=== PATIENT | female | born 1950 | race Caucasian/White ===

== ENCOUNTER 2017-10-16 05:57 | Day surgery (SDC) | payer MEDICARE, OTHER, SELFPAY ==
[2017-10-16] VITALS (7 sets, daily range): BP systolic 125–150; BP diastolic 62–76; PULSE 60–69; RESP 14–16; TEMP 36–36.4; O2SAT 100; BMI 26.1
--- NOTE | 2017-10-16 | BUN_PTH ---
PATIENT: RAKEL RUEDA LOC: [facility] [place] U#:[id number] AGE/SX: 67/F ROOM: RE10/16/[address]: Dr. Luca Mansfield DPM : 1950 BED: DIS: 10/16/2017 SPEC #: [id number] RECD: 10/16/17 09:09 STATUS: REYNALDO EVELYN #: [id number] SARA: 10/16/17 00:[address]: Luca Mansfield DEPT: SURGICAL PATHOLOGY RECD BY: Brea Nunez ENTERED: 10/16/17 09:55 SP TYPE: BUNION OTHR DR: Jayro Ortiz Tissues: A - Bony tissue, NOS B - Bony tissue, NOS Procedures: Decalcification bone/plaque Surgery Specimen Level IV HEADER OPERATION: First metatarsal osteotomy bunionectomy / great toe Chris osteotomy PRE-OP DIAGNOSIS: Bunion of left first metatarsal TISSUE SUBMITTED: A ? Gout first metatarsophalangeal joint sent fresh, B ? Left foot bunionectomy MICROSCOPIC DIAGNOSIS A. Gout, first metatarsophalangeal joint tissue: A piece of fibroconnective tissue with changes consistent with gout. Touch imprint shows monosodium urate crystals. B. Left foot bunion: Pieces of fibroconnective tissue, reactive synovial tissue with chronic inflammation and changes consistent with gout. Pieces of bone with reactive changes, clinically bunion. SJ:rg 10/21/17 COMMENT A. The specimen is evaluated at the time of touch imprints by Dr. Pelletier. Immediate Evaluation = Gout, monosodium urate crystals are noted. MICROSCOPIC DESCRIPTION Slides are reviewed. GROSS DESCRIPTION A - Received fresh for examination of crystals labeled with the patient's name is a specimen designated left foot first metatarsal gout crystal. The specimen consists of two minute pieces of randhawa soft tissue measuring in aggregate 0.2 x 0.2 x 0.1 cm. Two touch imprints are prepared for crystal examination. The entire specimen is submitted in one cassette. B - Received in fixative is one container labeled with the patient's name and designated left foot bunion. The specimen consists of multiple pieces of bone that in aggregate measure 4 x 3.5 x 0.5 cm. Also present in the container are multiple pieces of soft tissue measuring in aggregate 2.5 x 2 x 0.3 cm. The entire specimen is submitted in three cassettes as follows: 1 ? soft tissue, 2 & 3 ? bone after decalcification. / SJ:rg 10/16/17 TC:5 CPT: 32484 x2, 47379, 32021
--- NOTE | 2017-10-16 06:10 | EKG12_ITS ---
Test Reason : PRE OP Blood Pressure : / mmHG Vent. Rate : 066 BPM Atrial Rate : 066 BPM P-R Int : 152 ms QRS Dur : 078 ms QT Int : 402 ms P-R-T Axes : 027 -02 021 degrees QTc Int : 421 ms Normal sinus rhythm Normal ECG Confirmed by MARC TATUM, TAMIKA ([id number]), supervising editor news reel YARI DEL RIO ([id number]) on 10/19/2017 4:07:20 PM Referred By: Luca Mansfield Confirmed By:TAMIKA TRAN MD
[2017-10-16 06:28] LABS: Absolute Lymphocyte Count 2.15 X10^3/ul (0.83-4.51); Absolute Neutrophil Count 4.6 X10^3/uL (2.0-7.7); Basophil# 0.04 X10^3/uL; Basophil% 0.5 % (0-1); Eosinophil# 0.23 X10^3/uL; Eosinophils% 2.8 % (0-5); Hematocrit 41.7 % (37-47); Hemoglobin 14.2 g/dl (12.0-15.0); Lymphocyte # 2.15 X10^3/ul (4.0); Lymphocyte % 26.4 % (19-41); Mean Corp Hgb Conc 34.1 g/gl (32-36); Mean Corpuscular Hgb 30.9 pg (27.0-32.0); Mean Corpuscular Volume 90.8 fL (81-99); Mean Platelet Vol. 9.2 fl (6.2-12.0); Monocyte# 1.13 X10^3/uL; Monocyte% 13.9 % (0-10); Neutrophil # 4.58 X10^3/uL (2.7-7.7); Neutrophil % 56.3 % (47-70); Platelet Count 270 K/mm3 (150-450); RBC Distribution Width CV 12.9 % (11.6-14.6); RBC Distribution Width SD 42.4 fl (35.1-43.9); Red Blood Count 4.59 M/mm3 (4.2-5.4); White Blood Count 8.1 K/mm3 (4.4-11.0)
[2017-10-16 06:32] LABS: POSITIVE COUNT NO; POSITIVE DIFFERENTIAL NO; POSITIVE MORPHOLOGY NO
[2017-10-16 06:42] LABS: Anion Gap 8 (5-15); BUN 24 mg/dL (7-18); BUN/Creat Ratio 24.3 RATIO (10-20); Calcium,Total 8.9 mg/dL (8.5-10.1); Chloride 107 mmol/L (98-107); Creatinine, Serum 0.99 mg/dL (0.55-1.02); EST Glomerular Filtration Rate 59 mL/min (>60); Est Glom Filt Rate - Afr Amer 72 mL/min (>60); Glucose 102 mg/dL (74-106); Potassium 4.2 mmol/L (3.5-5.1); Sodium Level 144 mmol/L (136-145)
[2017-10-16] MEDS: Cefazolin 2 GM in 0.9% Normal Saline 100 ML IV (07:26)
--- NOTE | 2017-10-16 07:30 | RAD_ITS ---
STUDY: X-RAY LEFT FOOT, GREAT TOE REASON FOR EXAM: Female, 67 years old. Bunionectomy TECHNIQUE: 2 intraoperative fluoroscopic view(s) of the toe were obtained. COMPARISON: None. FINDINGS: 1 images severely degraded by motion artifact. Postoperative changes are seen to the first metatarsal and proximal first phalanx. RAD/Toe(s) Min 2 Views IMPRESSION: Fluoroscopy provided for the operating surgeon. Electronically Signed: Fabrizio Morris DO at 9:58 EDT Tel , Service support ,
[2017-10-16] MEDS: Bupivacaine 0.25% 30 ML Vial (07:42)
--- NOTE | 2017-10-16 09:12 | OP.PCM_ITS ---
Report of Operation Date of Procedure: 10/16/17 Pre-Operative Diagnosis: Hallux valgus bunion, left foot Post-Operative Diagnosis: Hallux valgus bunion, left foot Surgery/Procedure Performed:: 1st metatarsal osteotomy bunionectomy, kamryn ( great toe) osteotomy left foot Description of Surgical Findings:: Significant hallux valgus bunion left foot, degenerative changes of the 1st MTPJ , gouty tophi 1st MTPJ left foot waste treatment operator: yes - Dr. Lonnie Watson Type of Anesthesia:: Local MAC Specimen's removed: Resected bunion left 1st MTPJ left foot sent to pathology. Crystal analysis left 1st MTPJ sent to pathology Estimated Blood Loss (mL): 10mL Description of Procedure: Indications: This is a 67 year-old female who has had chronic left foot bunion pain. She has a significant bunion deformity present. She has trouble with shoes and with activities. She has tried nonsurgical care however her symptoms persist and are only getting worse. She was asking about surgical options. We discussed all of the options, and she elected to proceed with first metatarsal osteotomy bunionectomy with a great toe osteotomy. This was discussed with her in great detail. We reviewed all the possible benefits, risks, goals and expectations. She expressed understanding and agreement. We also reviewed the typical postoperative and expected postoperative course. She expressed understanding and agreement and wanted to proceed forward with surgical intervention. All alternative options were discussed with her and all the possible benefits, risks of the alternative options were discussed with her as well in detail. She expressed understanding and agreement and again want to proceed for surgical intervention. The consent form was reviewed with her and she freely signed them. No guarantees were given or implied. Operative Procedure: The patient was brought back into the operating room and was placed onto the operative table in the supine position. She was carefully secured to the operating room table with safety belt around her waist. The patient did receive 2 g of intravenous cefazolin for antibiotic prophylaxis, the patient received MAC anesthesia per the anesthesiologist and then a total of 10 mL of 0.5% bupivacaine plain was given as a regional infiltrative nerve block around the first ray on her left foot after overlying skin was cleansed with 70% isopropyl alcohol. A well-padded pneumatic tourniquet was applied around her left ankle. The left foot was scrubbed, prepped and draped in the usual aseptic fashion. Further attention was directed to the left foot, there was significant hallux valgus bunion deformity. The hallux was abutting into the second toe. The foot was exsanguinated using an Esmarch bandage and the left ankle pneumatic tourniquet was inflated to 250 mmHg. Using a #15 scalpel blade, an incision was made just medial to the extensor hallucis longus tendon overlying the dorsal aspect of the first metatarsal and over the first metatarsophalangeal joint. Careful dissection was completed down to the first metatarsal and first metatarsophalangeal joint. The capsule of the first metatarsophalangeal joint was incised dorsally as well as the periosteum of the first metatarsal was incised dorsally using a #15 scalpel blade and these were carefully partially reflected exposing the distal first metatarsal and the first metatarsal. The first metatarsal head was visualized, there was noted to be chronic degenerative changes with thinning of the cartilage present. There was also noted to be gouty tophi present which was removed and sent to pathology for crystal analysis. There was a large medial eminence of the first metatarsal head and using a powered sagittal saw, this was gently resected preserving the sagittal groove, this was sent to pathology. A scarf osteotomy was completed using a powered sagittal saw to the first metatarsal. This was done in standard fashion with a longitudinal arm, a dorsal distal arm and a plantar proximal arm. The capital fragment was gently and carefully shifted laterally reducing the first intermetatarsal angle to normal. The osteotomy site was temporarily fixated with a 0.062 inch K wire, then osteotomy site was fixated using rigid open reduction and internal fixation technique using two 2.7 mm Synthes screws from the Synthes mini fragment set. The 0.045 K-wire was removed. The osteotomy was stable with good bone to bone contact and good alignment present, screws intact in good position. Intraoperative fluoroscopy confirmed this as well. It was also noted that the adductor hallucis longus tendon was very tight as well as the lateral capsule and the sesamoidal ligament of the fibular sesamoid. Careful dissection was completed to the distal 1st intermetatarsal space, and the adductor hallucis longus tendon, lateral capsule of the first metatarsal phalangeal joint, and the sesamoidal ligament of the fibular sesamoid were identified, these were gently released using a #15 scalpel blade. At this time, it was noted that there was still lateral deviation of the hallux consistent with her significant deformity. An incision was made using a 15 scalpel blade overlying the dorsal medial aspect of the hallux proximal phalanx , medial to the extension hallucis longus tendon. Careful dissection was completed down to the periosteum of the proximal phalanx of the hallux. The periosteum was incised on the hallux proximal phalanx and was partially reflected exposing the bone for an Kamryn osteotomy. Kamryn osteotomy was completed using a powered sagittal saw with the apex of the osteotomy lateral and the base medial. The wedge of bone was gently removed, keeping the lateral cortex intact. The hallux was shifted medially so that it was in a rectus position clinically. The bone ends were brought together and was fixated using rigid open reduction and internal fixation technique using one Arthrex plaple. At this time, the osteotomy site was stable, good bone to bone contact and good fixation present. Intraoperative fluoroscopy confirmed this as well. The hallux was put through a range of motion, there was good smooth gliding range of motion present. The site was flushed out with copious amounts of normal saline solution. The periosteum and the first metatarsophalangeal joint capsule was carefully reapproximated using 3-0 Vicryl. The subcutaneous tissue layer was carefully reapproximated using 3-0 Vicryl. The skin was carefully reapproximated using 4-0 Monocryl. The patient tolerated the above procedure well and anesthesia well with no complications. The patient was transported from the operative room to the recovery room with vital signs stable and in good condition. Post operative orders were placed, and post operative instructions were reviewed with the patient and her who was with her today (verbal and written). No weightbearing left forefoot, keep the dressing clean, dry and intact. Keep foot elevated for at least 50 minutes of every hour. Post operative prescriptions for Vicodin for pain control as well as Augmentin to help prevent infection were dispensed. Patient to follow up in 1 week, sooner if needed. Also of note post operative xrays were obtained of the left foot in the recovery room, which were reviewed. These confirmed 1st metatarsal osteotomy bunionectomy and hallux osteotomy (kamryn) with good position present, congruent 1st metatarsal phalangeal joint, normal 1st IM angle and normal hallux abductus angle, screws intact and in good position. Grafts/Implants Used: 2 x 2.7mm Synthes cortical screws, 1 arthrex plaple - Complications None
--- NOTE | 2017-10-16 09:14 | PCM.DC.POD ---
Discharge Diet: Light diet - advance as tolerated Discharge Activity: May not drive while taking narcotic pain medications. Weight Bearing Status: No weight bearing - No weightbearing left foot Keep extremity elevated above heart level: Left Leg - Keep left foot elevated with pillows for at least 50 minutes of every hour Call your doctor if your incision/area has: Continuous Slow Oozing, Sudden Increased Bleeding, Increased Pain/ Swelling, Foul Smelling Discharge Call your doctor if you observe: Fever of 101 or Higher, Coldness, Increased Pain, Shortness of breath, Chest pain, Increased palpitations (irregular heartbeat), Calf discomfort, Uncontrolled pain Cleanse incision/area with: Do not get Incision Wet, Keep Dressing Clean & Dry Allergies/Adverse Reactions: Allergies ciprofloxacin [From Cipro] Adverse Reaction (Verified 10/12/17 14:36) Rash Sulfa (Sulfonamide Antibiotics) Adverse Reaction (Verified 10/12/17 14:36) Rash Medications to take at Discharge Cholecalciferol (Vitamin D3) [Vitamin D3] 2,000 unit PO DAILY 10/12/17 Metoprolol Tartrate [Lopressor (Beta Robert)] 100 mg PO QHS 10/12/17 Amoxicillin/Potassium Clav [Augmentin 500-125 Tablet] 1 ea PO Q12H #6 tab 10/16/17 Hydrocodone/Acetaminophen [Vicodin 5-300 mg Tablet] 1 - 2 tab PO Q6H PRN PRN 3 Days #20 tab 10/16/17 The following prescriptions were given: Hydrocodone/Acetaminophen [Vicodin 5-300 mg Tablet] 1 - 2 tab PO Q6H PRN PRN 3 Days #20 tab PRN Reason: Pain Amoxicillin/Potassium Clav [Augmentin 500-125 Tablet] 1 ea PO Q12H #6 tab Primary Care Physician: Jayro Ortiz [Primary Care Provider] - Test Results: Test results from this visit will be discussed in further detail at your follow-up appointment, if applicable. Please Follow Up With: Luca Mansfield DPM When: within 1 week, sooner if needed
--- NOTE | 2017-10-16 09:30 | RAD_ITS ---
STUDY: X-RAY - LEFT FOOT CLINICAL: Female, 67 years old. Postop TECHNIQUE: 3 view(s) of the foot. COMPARISON: Intraoperative spot views, same date FINDINGS: Normal talus, calcaneus, and tarsal bones. Normal visualized subtalar, talonavicular, calcaneocuboid, tarsal and tarsometatarsal articulations. There has been an osteotomy of the first metatarsal. 2 metallic screws project within the mid first metatarsal. A lucency is seen within the proximal first metatarsal. Normal metatarsophalangeal joint of the great toe. Normal tibial and fibular sesamoid bones. Normal interphalangeal joint of the great toe. There is been an osteotomy to the proximal first phalanx, with a small metallic plate and screw present. Normal second through fifth metatarsophalangeal joints. Normal interphalangeal joints and phalanges of the lesser toes. There is soft tissue swelling adjacent to the first metatarsal-phalangeal joint. RAD/Foot min 3 Views IMPRESSION: Postoperative changes to the first digit, as detailed above. Electronically Signed: Fabrizio Morris DO at 9:45 EDT Tel , Service support ,
== END 2017-10-16 10:30 | disposition home or self-care (01) ==
LOC: SDC 05:58 → AC 06:00
PROVIDERS: Visit Provider Podiatrist
PROC: (CPT 28299; principal; 2017-10-16 07:15)
DX: M20.12 Hallux valgus (acquired), left foot (principal); M21.612 Bunion of left foot; M1A.9XX1 Chronic gout, unspecified, with tophus (tophi); I10 Essential (primary) hypertension; M06.9 Rheumatoid arthritis, unspecified; Z85.828 Personal history of other malignant neoplasm of skin
CPT/HCPCS: 28299; 36415; 73630; 73660; 76000; 80048; 85025; 88305; 88307; 88311; 93005; C1713; J7120

== ENCOUNTER → 2019-01-03 11:29 | Outpatient (CLI) | payer MEDICARE, OTHER, SELFPAY ==
[2017-10-16 06:59] VITALS: BMI 26.1
[2019-01-03 14:11] LABS: Absolute Lymphocyte Count 1.98 X10^3/uL (0.83-4.51); Basophil# 0.06 X10^3/uL; Basophil% 0.7 % (0-1); Eosinophils% 3.7 % (0-5); Hematocrit 44.4 % (37-47); Hemoglobin 14.3 g/dL (12.0-15.0); Lymphocyte # 1.98 X10^3/ul (4.0); Lymphocyte % 24.4 % (19-41); Mean Corp Hgb Conc 32.2 g/dL (32-36); Mean Corpuscular Volume 93.3 fL (81-99); Mean Platelet Vol. 10.3 fl (6.2-12.0); Monocyte# 0.72 X10^3/uL; Monocyte% 8.9 % (0-10); NRBC Flagged by Analyzer 0 % (0-5); Neutrophil # 5.02 X10^3/uL (2.7-7.7); Neutrophil % 62.1 % (47-70); Platelet Count 284 K/mm3 (150-450); RBC Distribution Width CV 12.6 % (11.6-14.6); RBC Distribution Width SD 43.2 fl (35.1-43.9); Red Blood Count 4.76 M/mm3 (4.2-5.4); White Blood Count 8.1 K/mm3 (4.4-11.0)
[2019-01-03 14:32] LABS: ALB/GLOB Ratio 1.3 RATIO (0.9-2.4); AST(SGOT) 12 U/L (15-37); Alanine Aminotransfer ALT/SGPT 19 U/L (13-56); Albumin, Serum 3.9 g/dL (3.2-5.0); Alkaline Phosphatase 101 U/L (45-117); Anion Gap 6 (5-15); BUN 15 mg/dL (7-18); BUN/Creat Ratio 16.1 RATIO (10-20); Calcium,Total 9.4 mg/dL (8.5-10.1); Chloride 104 mmol/L (98-107); Creatinine, Serum 0.93 mg/dL (0.55-1.02); EST Glomerular Filtration Rate 63 mL/min (>60); Est Glom Filt Rate - Afr Amer 76 mL/min (>60); Globulin 3.1 g/dL (2.2-4.2); Glucose 104 mg/dL (74-106); Potassium 4.4 mmol/L (3.5-5.1); Sodium Level 140 mmol/L (136-145)
== END ==
PROVIDERS: Referring Provider Family Medicine; Visit Provider Family Medicine
DX: Z01.818 Encounter for other preprocedural examination (principal)
CPT/HCPCS: 36415; 80053; 85025

== ENCOUNTER 2019-01-28 05:35 | Day surgery (SDC) | payer MEDICARE, OTHER, SELFPAY ==
--- NOTE | 2019-01-28 | BUN_PTH ---
PATIENT: RAKEL RUEDA LOC: [facility] [place] U#:[id number] AGE/SX: 68/F ROOM: RE01/28/[address]: SEAN JiménezM : 1950 BED: DIS: 01/28/2019 SPEC #: [id number] RECD: 01/28/19 13:02 STATUS: REYNALDO RECar #: [id number] SARA: 01/28/19 00:[address]: Luca Mansfield DEPT: SURGICAL PATHOLOGY RECD BY: Bryant Burks ENTERED: 01/28/19 13:03 SP TYPE: BUNION OTHR DR: Jayro Ortiz Tissues: Bony tissue, NOS Procedures: Decalcification bone/plaque Surgery Specimen Level III HEADER OPERATION: First metatarsal osteotomy bunionectomy, Chris osteotomy, foot PRE-OP DIAGNOSIS: Painful hallux valgus bunion TISSUE SUBMITTED: Bunion right foot MICROSCOPIC DIAGNOSIS Bone of right foot, excision: Osseocartilaginous tissue with reactive change. See comment. AM:sherry 02/02/19 COMMENT The findings are consistent with a bunion. Clinical correlation is suggested. MICROSCOPIC DESCRIPTION Slides are reviewed. GROSS DESCRIPTION Received in fixative is one container labeled with the patient's name and designated rober right foot. The specimen consists of multiple fragments of bone that in aggregate measure 3 x 2 x 0.3 cm. The entire specimen is submitted in two cassettes after decalcification. / SJ:sherry 01/28/19 TC:5 CPT: 41987, 23260
--- NOTE | 2019-01-28 06:01 | EKG12_ITS ---
Test Reason : PRE-OP Blood Pressure : / mmHG Vent. Rate : 061 BPM Atrial Rate : 061 BPM P-R Int : 148 ms QRS Dur : 078 ms QT Int : 422 ms P-R-T Axes : 019 -03 007 degrees QTc Int : 424 ms Normal sinus rhythm Normal ECG Confirmed by MARC TATUM, TAMIKA ([id number]), transformer builder YARI DEL RIO ([id number]) on 02/01/2019 2:08:01 PM Referred By: Luca Mansfield Confirmed By:TAMIKA TRAN MD
[2019-01-28 06:18] VITALS: BP 119/49; PULSE 59; RESP 18; TEMP 36.5; O2SAT 100; BMI 26.9
[2019-01-28] MEDS: Lactated Ringers 1,000 ML 100 ML IV ×2 (07:09→09:26)
--- NOTE | 2019-01-28 07:23 | DCINST_ITS ---
Discharge Diet: Light diet - advance as tolerated Discharge Activity: May Not Drive, Use Walker Weight Bearing Status: No weight bearing - To weightbearing to toes or ball of right foot Keep extremity elevated above heart level: Right Leg - Keep right foot elevated for at least 50 minutes of every hour Call your doctor if your incision/area has: Continuous Slow Oozing, Sudden Increased Bleeding, Increased Pain/ Swelling, Foul Smelling Discharge Call your doctor if you observe: Fever of 101 or Higher, Shortness of breath, Chest pain, Increased palpitations (irregular heartbeat), Calf discomfort, Uncontrolled pain Cleanse incision/area with: Do not get Incision Wet, Keep Dressing Clean & Dry Allergies/Adverse Reactions: Allergies ciprofloxacin [From Cipro] Adverse Reaction (Verified 01/28/19 06:15) Rash Sulfa (Sulfonamide Antibiotics) Adverse Reaction (Verified 01/28/19 06:15) Rash Medications to take at Discharge Metoprolol Tartrate [Lopressor (Beta Robert)] 100 mg PO BID 10/12/17 Calcium Carbonate/Vitamin D3 [Calcium 600-Vit D3 500 Softgel] 2 ea PO DAILY 01/21/19 DiphenhydrAMINE [Benadryl] 25 mg PO QHS PRN PRN 01/21/19 Folic Acid 1 mg PO BID 01/21/19 Hydrocodone/Acetaminophen [Vicodin 5-300 mg Tablet] 1 - 2 tab PO Q6H PRN PRN 3 Days #30 tab 01/28/19 The following prescriptions were given: Hydrocodone/Acetaminophen [Vicodin 5-300 mg Tablet] 1 - 2 tab PO Q6H PRN PRN 3 Days #30 tab PRN Reason: Pain Score 1-10/10 Prescription Printed Primary Care Physician: Clarisse Ortiz [Other] Test Results: Test results from this visit will be discussed in further detail at your follow- up appointment, if applicable. Please Follow Up With: Luca Mansfield DPM When: 1 week, sooner if needed
[2019-01-28] MEDS: Cefazolin 2 GM in 0.9% Normal Saline 100 ML IV (07:25)
--- NOTE | 2019-01-28 07:30 | RAD_ITS ---
STUDY: X-RAY - RIGHT FOOT CLINICAL: Female, 68 years old. Surgery TECHNIQUE: 2 view(s) of the foot. COMPARISON: None. FINDINGS: 10 seconds of fluoroscopy of the right foot was utilized and operating room and 2 images made of for interpretation. Next RAD/Foot 2 Views IMPRESSION: Fluoroscopy during surgery. Electronically Signed: Henry Singer MD at 11:51 EST Tel , Service support ,
[2019-01-28] MEDS: Bupivacaine Mpf 0.5% 30 ML VIAL (09:00)
--- NOTE | 2019-01-28 09:09 | RAD_ITS ---
STUDY: X-RAY - RIGHT FOOT CLINICAL: Female, 68 years old. Bunionectomy. TECHNIQUE: 3 view(s) of the foot. COMPARISON: None. FINDINGS: Normal talus, calcaneus, and tarsal bones. Normal visualized subtalar, talonavicular, calcaneocuboid, tarsal and tarsometatarsal articulations. Normal metatarsi. Status post bunionectomy, osteotomy, and screw fixation of the first metatarsal bone with possible fracture line through the base of the first metatarsal bone. Normal tibial and fibular sesamoid bones. Normal interphalangeal joint of the great toe. Patient is also status post osteotomy and fixation of the shaft of the first proximal phalanx. Normal second through fifth metatarsophalangeal joints. Normal interphalangeal joints and phalanges of the lesser toes. The soft tissue structures are unremarkable. RAD/Foot min 3 Views IMPRESSION: Status post bunionectomy, osteotomy, and screw fixation of the first metatarsal bone and osteotomy and staple fixation of the first proximal phalanx. Electronically Signed: Henry Singer MD at 11:41 EST Tel , Service support ,
--- NOTE | 2019-01-28 09:11 | PCM.OPRPT ---
Report of Operation Date of Procedure: 01/28/19 Pre-Operative Diagnosis: Painful hallux valgus bunion, right foot Post-Operative Diagnosis: Same Surgery/Procedure Performed:: 1st metatarsal osteotomy bunionectomy with 1st toe kamryn osteotomy, right community service organization director: yes - Dr. Lo Gloria Type of Anesthesia:: Local MAC Specimen's removed: Bunion from right foot sent to pathology Description of Procedure: Indications: This is a 68 year-old female who has chronic right foot bunion pain. She has a significant bunion deformity present. She had same problem on left foot and underwent surgical correction and that foot is doing very well. The right foot bunion is really bothering her. She has trouble with shoes and with activities. The 1st toe is under riding the 2nd toe. She has tried nonsurgical care however her symptoms persist and are only getting worse. We discussed all of the options, and she elected to proceed with first metatarsal osteotomy bunionectomy with a 1st toe/great toe osteotomy. This was discussed with her in great detail. We reviewed all the possible benefits, risks, goals and expectations. She expressed understanding and agreement. We also reviewed the typical postoperative and expected postoperative course. She expressed understanding and agreement and wanted to proceed forward with surgical intervention. All alternative options were discussed with her and all the possible benefits, risks of the alternative options were discussed with her as well in detail. She expressed understanding and agreement and again want to proceed for surgical intervention. The consent form was reviewed with her and she freely signed them. No guarantees were given or implied. Operative Procedure: The patient was brought back into the operating room and was placed onto the operative table in the supine position. She was carefully secured to the operating room table with safety belt around her waist. The patient did receive 2 g of intravenous cefazolin for antibiotic prophylaxis, the patient received MAC anesthesia per the anesthesiologist and then a total of 10 mL of 0.5% bupivacaine plain was given as a regional infiltrative nerve block around the first ray on her right foot after overlying skin was cleansed with 70% isopropyl alcohol. A well-padded pneumatic tourniquet was applied around her right ankle. The right foot was scrubbed, prepped and draped in the usual aseptic fashion. Further attention was directed to the right foot, there was significant hallux valgus bunion deformity. The hallux was under riding the second toe. The foot was exsanguinated via elevation for 3 minutes and the right ankle pneumatic tourniquet was inflated to 250 mmHg. Using a #15 scalpel blade, an incision was made just medial to the extensor hallucis longus tendon overlying the dorsal aspect of the first metatarsal and over the first metatarsophalangeal joint. Careful dissection was completed down to the first metatarsal and first metatarsophalangeal joint. The capsule of the first metatarsophalangeal joint was incised dorsally as well as the periosteum of the first metatarsal was incised dorsally using a #15 scalpel blade and these were carefully partially reflected exposing the distal first metatarsal and the first metatarsal. The first metatarsal head was visualized, there was noted to be chronic degenerative changes with thinning of the cartilage present. 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 A scarf osteotomy was completed using a powered sagittal saw to the first metatarsal. This was done in standard fashion with a longitudinal arm, a dorsal distal arm and a plantar proximal arm. The capital fragment was gently and carefully shifted laterally reducing the first intermetatarsal angle to normal. The osteotomy site was temporarily fixated with a 0.062 inch K wire, then osteotomy site was fixated using rigid open reduction and internal fixation technique using two 2.7 mm Synthes screws from the Synthes mini fragment set. The K-wire was removed. The osteotomy was stable with good bone to bone contact and good alignment present, screws intact in good position. Intraoperative fluoroscopy confirmed this as well. It was also noted that the adductor hallucis longus tendon was very tight as well as the lateral capsule and the sesamoidal ligament of the fibular sesamoid. Careful dissection was completed to the distal 1st intermetatarsal space, and the adductor hallucis longus tendon, lateral capsule of the first metatarsal phalangeal joint, and the sesamoidal ligament of the fibular sesamoid were identified, these were gently released using a #15 scalpel blade. At this time, it was noted that there was still lateral deviation of the hallux consistent with her significant deformity. An incision was made using a 15 scalpel blade overlying the dorsal medial aspect of the hallux proximal phalanx, medial to the extension hallucis longus tendon. Careful dissection was completed down to the periosteum of the proximal phalanx of the hallux. The periosteum was incised on the hallux proximal phalanx and was partially reflected exposing the bone for an Kamryn osteotomy. Kamryn osteotomy was completed using a powered sagittal saw with the apex of the osteotomy lateral and the base medial. The wedge of bone was gently removed, keeping the lateral cortex intact. The hallux was shifted medially so that it was in a rectus position clinically. The bone ends were brought together and fixated using rigid open reduction and internal fixation technique using one Arthrex staple. At this time, the osteotomy site was stable, good bone to bone contact and good fixation present. Intraoperative fluoroscopy confirmed this as well. The right ankle pneumatic tourniquet was deflated and there was immediate return of warmth and perfusion to the right foot and to all five toes with CFT < 2 seconds to all toes and normal temperature. Total tourniquet time was 59 minutes. The hallux was put through a range of motion, there was good smooth gliding range of motion present. The site was flushed out with copious amounts of normal saline solution. The periosteum and the first metatarsophalangeal joint capsule was carefully reapproximated using 3-0 Vicryl. The subcutaneous tissue layer was carefully reapproximated using 3-0 Vicryl. The skin was carefully reapproximated using 4-0 Monocryl. An additional 15mL of 0.5% Bupivacaine plain was given as a local nerve block around the 1st ray. The patient tolerated the above procedure well and anesthesia well with no complications. The patient was transported from the operative room to the recovery room with vital signs stable and in good condition. Post operative orders were placed, and post operative instructions were reviewed with the patient and her who was with her today (verbal and written). No weightbearing right forefoot, keep the dressing clean, dry and intact. Keep foot elevated for at least 50 minutes of every hour. Post operative prescriptions for Vicodin for pain control was dispensed. Patient to follow up in 1 week, sooner if needed. Also of note post operative xrays were obtained of the right foot in the recovery room, which were reviewed. These confirmed 1st metatarsal osteotomy bunionectomy and hallux osteotomy (kamryn) with good position present, congruent 1st metatarsal phalangeal joint, normal 1st IM angle and normal hallux abductus angle, screws and staple intact and in good position. Grafts/Implants Used: 2 x Synthes 2.7 screws, 1 x Arthrex staple - Complications None
[2019-01-28 09:14] VITALS: BP 113/83; BP 119/49; PULSE 70; RESP 16; TEMP 36.1; O2SAT 100
[2019-01-28 09:20] VITALS: BP 103/53; BP 119/49; PULSE 50; RESP 16; O2SAT 100
[2019-01-28 09:25] VITALS: BP 119/49; BP 128/59; PULSE 50; RESP 16; O2SAT 99
[2019-01-28 09:30] VITALS: BP 119/49; BP 124/82; PULSE 61; RESP 16; TEMP 36.4; O2SAT 97
[2019-01-28 10:49] VITALS: BP 119/49
== END 2019-01-28 10:51 | disposition home or self-care (01) ==
LOC: SDC 05:36 → AC 05:38
PROVIDERS: Referring Provider Podiatrist; Visit Provider Podiatrist
PROC: (CPT 28292; principal; 2019-01-28 07:15)
DX: M20.11 Hallux valgus (acquired), right foot (principal); E78.00 Pure hypercholesterolemia, unspecified; Z79.899 Other long term (current) drug therapy; I10 Essential (primary) hypertension
CPT/HCPCS: 28299; 73620; 73630; 76000; 88304; 88311; 93005; C1713; J7120; J2405